=== PATIENT | male | born 1955 | race Caucasian/White ===

== ENCOUNTER 2017-06-10 11:07 | Outpatient (CLI) | payer OTHER ==
--- NOTE | 2017-06-10 13:01 | RAD ---
TWO VIEW CHEST: History: Asthma. Shortness of breath. FINDINGS: Lungs appear well aerated. No evidence of infiltrate. Heart size is normal. Vasculature are normal. N o evidence of edema or effusion. Osseous structures are unremarkable. IMPRESSION: No evidence of acute infiltrate. POS: [facility]
== END 2017-06-10 11:08 | disposition home or self-care (01) ==
LOC: NAV RAD 11:07
DX: J45.21 Mild intermittent asthma with (acute) exacerbation (principal)
CPT/HCPCS: 71020